=== PATIENT | female | born 1995 ===

== ENCOUNTER 2022-10-29 07:44 | Inpatient (IN) ==
[2022-10-29] MEDS ORDERED: OXYTOCIN 30 UNITS/500 ML BAG IV PRN (08:33)
[2022-10-29] MEDS ORDERED: DINOPROSTONE 10 MG INSERT PV ONE (08:33)
[2022-10-29] MEDS ORDERED: LIDOCAINE 1% LOCAL 20 ML VIAL INFIL PRN (08:33)
[2022-10-29] MEDS ORDERED: BUTORPHANOL TARTRATE 1 MG/ML VIAL IV PRN (09:05)
--- NOTE | 2022-10-29 09:05 | History & Physical Report ---
Date of Service October 29, 2022 Assessment & Plan (1) Post-term , 40-42 weeks of gestation: Plan: 26-year-old G1, P0 at 41 weeks of gestation, induction of labor for postdates, Vital signs stable afebrile, heart rate reassuring, GBS negative, Plan to admit, monitor, labs, Cervidil for cervical ripening, Discussed what to expect from induction of labor, All questions were answered. Admission and Anticipated Discharge Date Admission Date: October 29, 2022 History of Present Illness Primary Care Provider: HARR[facility] PCP Patient is a 26-year-old G1, P0 at 41 weeks of gestation who was scheduled for induction of labor for postdates. She has no complaints. She denies contractions, leakage of fluid, vaginal bleeding. She reports good movements. Her has been uncomplicated. GBS negative. Allergies Allergy/AdvReac Type Severity Reaction Status Date / Time No Known Allergies Allergy Verified 10/29/22 08:04 Home Medications Medication Instructions Recorded Confirmed Type [id number]-jgc-[id number]-FA 1 mg 1 tab PO DAILY 10/29/22 10/29/22 History tablet Patient History Medical History Family history of polycystic ovarian syndrome patient dx at age of 16 Surgical History H/O wisdom tooth extraction Social History Smoking Status: Never smoker Hx Alcohol Use: No Hx Substance Use: No Preferred Language: Sinhala Visual Impairment: No Limitations [employer] Required: No Beliefs That Will Affect Care: None marital status: marital status details: Salvador Charles Current Living Situation: Spouse current occupational status: employed 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 [employer] Other Information That Helps Us Care for You: No Feels Safe at Home: Yes Safety Concerns: Feels Safe At This Time Assistive Devices: None 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 No history of STDs, no history of chlamydia, gonorrhea, herpes Review of Systems as per Subjective / HPI Physical Exam Constitutional: WD/WN, vitals as above well developed, well nourished and comfortable Gastrointestinal (Abdomen): normal bowel sounds, soft, nontender, no hepatosplenomegaly (Gravid, Enrique 8 pounds) Genitourinary: normal external appearance OB Exam Abdomen: + vertex Manual OB Exam: + cervical dilation (0), + cervical effacement 50% and + station high OB Exam Monitor Tracing: + external uterine monitor used and + category I Bedside ultrasound, vertex, estimated weight 3773 g Results & Data Vital Signs (Past 12 Hours) Vital Signs Temp Resp 10/29/22 07:59 37.1 C 16
[2022-10-29 09:26] LABS: Hematocrit (blood only) 37.4 % (37.0-47.0); Hemoglobin 12.9 g/dl (12.0-16.0); Mean Corpuscular Hemoglobin 31.6 pg (25.0-34.0); Mean Corpuscular Hgb Conc 34.5 g/dL (32.0-36.0); Mean Corpuscular Volume 91.7 fL (80.0-100.0); Mean Platelet Volume 10.8 fL (9.4-12.4); Platelet Count 152 K/uL (130-400); RDW Coefficient of Variation 13.3 % (11.5-14.5); RDW Standard Deviation 44.9 fL (36.4-46.3); Red Blood Count 4.08 M/uL (4.20-5.40); White Blood Count 9.04 K/ul (4.8-10.8)
[2022-10-29] MEDS: LACTATED RINGER'S 1,000 ML IV PRN ×2 (15:28→19:25)
--- NOTE | 2022-10-29 15:51 | Obstetrical Progress Note ---
Date of Service October 29, 2022 Assessment & Plan Admission and Anticipated Discharge Date Admission Date: October 29, 2022 Subjective Patient is reevaluated. She has been feeling mild irregular cramping. The pain is 3 out of 10. heart rate category 1, [place] contractions every 1 to 2 minutes, tachysystole, Cervidil is removed, IV fluids started cervix is tight 1 cm, 30%, posterior, firm, -3, Continue to monitor closely Results & Data Vital Signs (Past 12 Hours) Vital Signs Temp Pulse Resp BP 10/29/22 14:58 20 10/29/22 14:58 37.1 C 20 10/29/22 14:59 78 138/79 10/29/22 11:58 37.1 C 78 16 133/80 10/29/22 07:54 102 H 134/88 10/29/22 07:59 37.1 C 16
--- NOTE | 2022-10-29 19:53 | Obstetrical Progress Note ---
Date of Service October 29, 2022 Assessment & Plan Admission and Anticipated Discharge Date Admission Date: October 29, 2022 Subjective Patient has been having painful contractions since Cervidil is removed She is asking for pain med Cervix unchanged She is very sensitive to medications, desires lowest dose possible Agrees to start with 0.5 mg Stadol Continue to monitor closely. Results & Data Vital Signs (Past 12 Hours) Vital Signs Temp Pulse Resp BP 10/29/22 19:16 36.5 C 81 18 138/79 10/29/22 14:58 20 10/29/22 14:58 37.1 C 20 10/29/22 14:59 78 138/79 10/29/22 11:58 37.1 C 78 16 133/80 10/29/22 07:54 102 H 134/88 10/29/22 07:59 37.1 C 16
[2022-10-29] MEDS: BUTORPHANOL TARTRATE 1 MG/ML VIAL IV PRN ×2 (19:56→20:19)
[2022-10-29] MEDS ORDERED: BUTORPHANOL TARTRATE 1 MG/ML VIAL IV ONE (20:14)
[2022-10-30] MEDS ORDERED: OXYTOCIN 30 UNITS/500 ML BAG IV PRN (00:17)
--- NOTE | 2022-10-30 00:17 | Obstetrical Progress Note ---
Date of Service October 30, 2022 Assessment & Plan Admission and Anticipated Discharge Date Admission Date: October 29, 2022 Subjective Patient started to be more painful again after she used Stadol VSS Afebrile FHR categ I Ctxs q 2-4 min VE; 2/ 70%/ -2, tight bulging bag Discussed IV stadol vs Epidural and she decided for epidural Continue to monitor closely Augment with low dose Oxytocin as needed Results & Data Vital Signs (Past 12 Hours) Vital Signs Temp Pulse Resp BP 10/29/22 22:51 37.1 C 88 18 125/71 10/29/22 19:16 36.5 C 81 18 138/79 10/29/22 14:58 20 10/29/22 14:58 37.1 C 20 10/29/22 14:59 78 138/79
[2022-10-30] MEDS ORDERED: fentaNYL citrate PF 100 MCG/2 ML VIAL ONE ×2 (00:18→18:21)
[2022-10-30] MEDS ORDERED: SODIUM CHLORIDE 0.9% PF INJ 10 ML VIAL ONE (00:18)
[2022-10-30] MEDS ORDERED: ePHEDrine sulfate 50 MG/ML AMP ONE (00:18)
[2022-10-30] MEDS ORDERED: BUPIVACAINE 0.25% PF 30 ML VIAL ONE (00:19)
[2022-10-30] MEDS ORDERED: fentaNYL 2MCG/ML ROPIVACAINE 1.25MG/ML 100 ML BAG EPI ONE (00:19)
[2022-10-30] MEDS ORDERED: LIDOCAINE 2%/EPINEPHRINE 1:200,000 20 ML PF ONE ×2 (00:19→18:20)
[2022-10-30] MEDS ORDERED: diphenhydrAMINE 50 MG/ML VIAL IV PRN ×2 (00:20→19:47)
[2022-10-30] MEDS ORDERED: NALOXONE HCL 1 MG in SODIUM CHLORIDE 0.9% 1000ML 1,000 ML IV PRN ×2 (00:20→19:47)
[2022-10-30] MEDS ORDERED: NALOXONE HCL 0.4 MG/1 ML VIAL/CARP IV PRN ×2 (00:20→19:47)
[2022-10-30] MEDS ORDERED: PROMETHAZINE HCL 6.25 MG in SODIUM CHLORIDE 0.9% 50 ML IV PRN (00:20)
[2022-10-30] MEDS ORDERED: NALBUPHINE HCL INJ 10 MG/ML AMP IV PRN ×2 (00:20→19:47)
[2022-10-30] MEDS ORDERED: ePHEDrine sulfate 50 MG/ML AMP IV PRN ×2 (00:20→19:47)
[2022-10-30] MEDS ORDERED: ONDANSETRON INJ 2 MG/ML 2 ML VIAL IV PRN ×3 (00:20→19:47)
--- NOTE | 2022-10-30 00:23 | Anesthesiology Consultation ---
Date of Service October 30, 2022 Assessment & Plan Chart Review Chart Review: Patient NOT seen in Pre Admission Testing and Acceptable Risk for Labor Epidural Consults Requested none ASA ASA2 Proposed Anesthesia Anesthesia Type: Labor Epidural Risk / Benefits Reviewed With: PT / POA / Parent / Guardian, Accepts Plan and Informed Consent Obtained History Height/Weight Height: 5 ft 4 in Weight: 84.368 kg Allergies Allergy/AdvReac Type Severity Reaction Status Date / Time No Known Allergies Allergy Verified 10/29/22 08:04 Medications Home Medications Medication Instructions Recorded Confirmed Last Taken [id number]-viz-Wk-FA 1 mg 1 tab PO DAILY 10/29/22 10/29/22 10/28/22 tablet Active Medications Generic Name Dose Route Start Last Admin Trade Name Freq PRN Reason Stop Dose Admin Butorphanol Tartrate 0.5 mg 10/29/22 19:51 10/29/22 20:19 Butorphanol Tartrate 1 Mg/Ml Vial IV 11/28/22 09:04 0.5 mg Q2HWA PRN Administration Pain Lactated Ringer's 1,000 mls @ 150 mls/hr 10/29/22 08:33 10/30/22 00:15 Lr IV 10/31/22 08:32 999 mls/hr .[id number] PRN Infusion L&D Protocol Protocol Past Medical History Medical History Family history of polycystic ovarian syndrome patient dx at age of 16 Exercise / Class Metabolic Activity II 4-5 Yardwork/Stairs/Walk up hill Past Surgical History Surgical History H/O wisdom tooth extraction Past Anesthesia History No Hx of Anesthesia Complications and No Family Hx of Anesthesia Complications History of PONV No Hx of PONV and No Hx of Motion Sickness Social History Smoking Status: Never smoker Hx Alcohol Use: No Hx Substance Use: No Physical Exam Vital Signs Last Vital Signs Temp 37.1 C 10/29/22 22:51 Pulse 72 10/30/22 00:15 Resp 18 10/29/22 22:51 BP 133/81 10/30/22 00:15 ENMT Mouth: no dentition abnormality Thyromental Distance: > or= 3.5 Finger Breadths Mallampati Class: II Neck normal visual inspection Respiratory normal respiratory effort Auscultation: lungs clear to auscultation bilaterally Cardiovascular Rate/Rhythm: regular rate and regular rhythm Psychiatric Orientation: alert Testing Laboratory Results 10/29/22 08:58
[2022-10-30] MEDS: fentaNYL 2MCG/ML ROPIVACAINE 1.25MG/ML 100 ML BAG EPI PRN ×3 (00:40→13:04)
[2022-10-30] MEDS: LACTATED RINGER'S 1,000 ML IV PRN ×4 (00:43→16:26)
--- NOTE | 2022-10-30 06:51 | Obstetrical Progress Note ---
Date of Service October 30, 2022 Assessment & Plan Admission and Anticipated Discharge Date Admission Date: October 29, 2022 Subjective Patient is reevaluated. SROM at 03:30 am Comfortable with epidural FHR categ I [place] ctxs q 2-3 min, Oxytocin is at 11 miu/min VE: 3/ 90%/-1, head is much lower Continue to monitor closely Results & Data Vital Signs (Past 12 Hours) Vital Signs Temp Pulse Resp BP Pulse Ox 10/30/22 06:48 76 121/57 L 10/30/22 06:43 83 98 10/30/22 06:38 76 97 10/30/22 06:33 76 98 10/30/22 06:31 77 117/59 L 10/30/22 06:28 74 97 10/30/22 06:23 84 97 10/30/22 06:18 75 114/57 L 98 10/30/22 06:13 91 H 99 10/30/22 06:00 18 10/30/22 06:00 36.9 C 18 10/30/22 06:08 74 97 10/30/22 06:03 84 99 10/30/22 06:01 78 120/72 10/30/22 05:58 82 98 10/30/22 05:53 80 97 10/30/22 05:48 82 97 10/30/22 05:47 75 121/69 10/30/22 05:43 81 97 10/30/22 05:38 81 98 10/30/22 05:33 81 97 10/30/22 05:31 77 121/62 10/30/22 05:28 80 96 10/30/22 05:23 82 98 10/30/22 05:18 84 96 10/30/22 05:17 88 114/63 10/30/22 05:13 89 95 10/30/22 05:08 85 96 10/30/22 05:03 90 96 10/30/22 05:02 86 112/58 L 10/30/22 04:58 90 96 10/30/22 04:53 82 97 10/30/22 04:48 82 96 10/30/22 04:46 77 120/60 10/30/22 04:43 82 96 10/30/22 04:38 80 98 10/30/22 04:33 97 10/30/22 04:33 80 10/30/22 04:33 78 113/64 10/30/22 04:28 81 97 10/30/22 04:23 77 98 10/30/22 04:18 84 99 10/30/22 04:17 75 117/55 L 10/30/22 04:13 79 96 10/30/22 04:08 78 96 10/30/22 03:59 36.8 C 10/30/22 04:03 80 97 10/30/22 04:02 76 117/58 L 10/30/22 03:58 83 97 10/30/22 03:53 87 97 10/30/22 03:48 81 96 10/30/22 03:46 81 107/53 L 10/30/22 03:43 83 97 10/30/22 03:30 18 10/30/22 03:30 18 10/30/22 03:38 91 H 96 10/30/22 03:33 97 10/30/22 03:33 84 10/30/22 03:33 83 102/50 L 10/30/22 03:28 82 96 10/30/22 03:00 18 10/30/22 03:00 18 10/30/22 03:23 82 96 10/30/22 03:18 82 96 10/30/22 03:17 77 100/51 L 10/30/22 03:13 79 97 10/30/22 03:06 18 10/30/22 03:06 36.9 C 18 10/30/22 03:08 79 96 10/30/22 03:03 101 H 96 10/30/22 03:02 86 108/57 L 10/30/22 02:58 89 97 10/30/22 02:53 92 H 97 10/30/22 02:48 88 97 10/30/22 02:46 97 H 109/57 L 10/30/22 02:43 98 H 97 10/30/22 02:38 91 H 97 10/30/22 02:33 81 98 10/30/22 02:31 90 109/63 10/30/22 02:28 81 97 10/30/22 02:23 79 99 10/30/22 02:18 80 99 10/30/22 02:16 85 108/64 10/30/22 02:13 83 99 10/30/22 02:08 88 99 10/30/22 02:03 87 100 10/30/22 02:01 85 112/64 10/30/22 01:58 99 H 100 10/30/22 01:53 95 H 100 10/30/22 01:48 92 H 100 10/30/22 01:47 83 109/62 10/30/22 01:43 93 H 100 10/30/22 01:38 92 H 100 10/30/22 01:33 85 99 10/30/22 01:32 81 106/60 10/30/22 01:28 100 H 100 10/30/22 01:23 89 100 10/30/22 01:18 92 H 100 10/30/22 01:17 93 H 112/68 10/30/22 01:13 94 H 99 10/30/22 01:08 90 100 10/30/22 01:03 98 H 98 10/30/22 01:01 86 123/72 10/30/22 00:58 85 98 10/30/22 00:57 90 132/75 10/30/22 00:53 87 98 10/30/22 00:52 92 H 120/72 10/30/22 00:50 84 122/70 10/30/22 00:48 89 128/73 99 10/30/22 00:46 81 126/76 10/30/22 00:43 84 99 10/30/22 00:44 84 133/79 10/30/22 00:42 88 129/78 10/30/22 00:40 81 135/76 10/30/22 00:38 100 10/30/22 00:38 93 H 10/30/22 00:38 75 148/82 H 10/30/22 00:35 72 147/86 H 10/30/22 00:33 81 100 10/30/22 00:28 100 H 100 10/30/22 00:23 80 99 10/30/22 00:15 72 133/81 10/29/22 22:51 37.1 C 88 18 125/71 10/29/22 19:16 36.5 C 81 18 138/79
[2022-10-30] MEDS ORDERED: ceFAZolin 2000MG 2,000 MG/15 ML SYR IV SCH ×2 (14:15→18:30)
[2022-10-30] MEDS ORDERED: MINERAL OIL 30 ML UDC ONE (14:57)
[2022-10-30] MEDS: CLINDAMYCIN/D5W 900 MG/50 ML BAG IV SCH ×2 (15:26→23:18)
--- NOTE | 2022-10-30 16:20 | Obstetrical Progress Note ---
Date of Service October 30, 2022 Assessment & Plan Admission and Anticipated Discharge Date Admission Date: October 29, 2022 Subjective Patient had temp of 38.4 earlier, started on IV Cefazolin and Clindamycin Temp came down to 37.8 Labored down for about 2 hours and then has been pushing for the last 2 hours. FHR had been categ I, started to be tachycardic now Head is at +3 station, caput succanadeum Bolus is going Empty her bladder and continue pushing Results & Data Vital Signs (Past 12 Hours) Vital Signs Temp Pulse Resp BP Pulse Ox 10/30/22 07:05 37.3 C 20 10/30/22 16:14 92 H 99 10/30/22 16:09 72 97 10/30/22 16:00 22 10/30/22 16:00 37.8 C H 22 10/30/22 16:04 113 H 98 10/30/22 16:01 90 121/63 10/30/22 15:59 88 96 10/30/22 15:58 108 H 93 10/30/22 15:54 87 98 10/30/22 15:49 92 H 97 10/30/22 15:48 93 H 119/61 10/30/22 15:30 20 10/30/22 15:30 20 10/30/22 15:44 92 H 97 10/30/22 15:39 107 H 99 10/30/22 15:34 124 H 99 10/30/22 15:31 93 H 121/70 10/30/22 15:29 93 H 98 10/30/22 15:24 88 98 10/30/22 15:19 85 100 10/30/22 15:14 106 H 96 10/30/22 15:09 110 H 99 10/30/22 15:04 89 98 10/30/22 15:00 20 10/30/22 15:00 20 10/30/22 14:59 85 98 10/30/22 14:54 118 H 100 10/30/22 14:53 37.1 C 10/30/22 14:49 114 H 99 10/30/22 14:47 100 H 151/85 H 10/30/22 14:44 103 H 99 10/30/22 14:30 18 10/30/22 14:30 18 10/30/22 14:39 86 98 10/30/22 14:34 97 H 98 10/30/22 14:32 92 H 124/61 10/30/22 14:29 119 H 98 10/30/22 14:24 101 H 99 10/30/22 14:19 118 H 99 10/30/22 14:17 86 130/64 10/30/22 14:14 99 H 100 10/30/22 14:09 82 100 10/30/22 14:03 88 100 10/30/22 14:02 115 H 128/89 10/30/22 13:55 38.3 C H 10/30/22 13:58 80 99 10/30/22 13:53 85 99 10/30/22 13:48 79 99 10/30/22 13:46 78 120/77 10/30/22 13:43 72 99 10/30/22 13:30 20 10/30/22 13:30 20 10/30/22 13:38 72 99 10/30/22 13:33 74 100 10/30/22 13:32 76 128/80 10/30/22 13:28 75 99 10/30/22 13:23 74 98 10/30/22 13:00 20 10/30/22 13:00 37.6 C H 20 10/30/22 13:18 72 98 10/30/22 13:17 88 127/83 10/30/22 13:13 78 100 10/30/22 13:08 72 100 10/30/22 13:03 73 100 10/30/22 13:01 68 127/76 10/30/22 12:58 71 99 10/30/22 12:53 71 100 10/30/22 12:30 20 10/30/22 12:30 20 10/30/22 12:48 73 100 10/30/22 12:46 75 126/77 10/30/22 12:43 88 100 10/30/22 12:38 74 100 10/30/22 12:33 76 100 10/30/22 12:31 74 121/68 10/30/22 12:28 74 99 10/30/22 12:23 72 100 10/30/22 12:18 75 99 10/30/22 12:17 73 119/68 10/30/22 12:13 74 100 10/30/22 12:08 73 99 10/30/22 12:00 18 10/30/22 12:00 37.6 C H 18 10/30/22 12:03 76 99 10/30/22 12:01 82 129/65 10/30/22 11:58 96 H 99 10/30/22 11:53 81 97 10/30/22 11:48 78 97 10/30/22 11:47 81 133/74 10/30/22 11:43 76 98 10/30/22 11:38 78 97 10/30/22 11:33 74 99 10/30/22 11:30 20 10/30/22 11:30 20 10/30/22 11:32 72 134/82 10/30/22 11:28 92 H 98 10/30/22 11:23 74 97 10/30/22 11:18 77 99 10/30/22 11:17 72 135/79 10/30/22 11:13 85 99 10/30/22 11:08 78 97 10/30/22 11:03 76 99 10/30/22 11:00 20 10/30/22 11:00 37.8 C H 20 10/30/22 11:01 77 130/79 10/30/22 10:30 18 10/30/22 10:30 18 10/30/22 10:58 75 98 10/30/22 10:53 76 98 10/30/22 10:48 75 98 10/30/22 10:47 75 132/85 10/30/22 10:43 96 H 100 10/30/22 10:38 80 98 10/30/22 10:33 78 99 10/30/22 10:31 74 116/60 10/30/22 10:28 76 98 10/30/22 10:23 82 98 10/30/22 10:18 78 98 10/30/22 10:16 77 115/60 10/30/22 10:13 79 97 10/30/22 10:08 79 98 10/30/22 10:00 20 10/30/22 10:00 20 10/30/22 09:30 20 10/30/22 09:30 20 10/30/22 10:03 80 99 10/30/22 10:02 78 114/64 10/30/22 09:58 83 100 10/30/22 09:53 84 99 10/30/22 09:48 78 100 10/30/22 09:46 83 127/68 10/30/22 09:43 88 99 10/30/22 09:38 83 99 10/30/22 09:33 100 10/30/22 09:33 84 10/30/22 09:33 79 121/78 10/30/22 09:28 83 99 10/30/22 09:23 81 99 10/30/22 09:18 88 99 10/30/22 09:16 82 129/77 10/30/22 09:00 20 10/30/22 09:00 37.6 C H 20 10/30/22 09:13 79 99 10/30/22 09:08 84 98 10/30/22 09:03 93 H 99 10/30/22 09:02 77 121/65 10/30/22 08:58 81 96 10/30/22 08:56 86 94 10/30/22 08:53 81 97 10/30/22 08:48 77 98 10/30/22 08:46 77 118/71 10/30/22 08:43 87 99 10/30/22 08:38 80 98 10/30/22 08:30 20 10/30/22 08:30 20 10/30/22 08:33 82 98 10/30/22 08:31 81 115/64 10/30/22 08:28 76 96 10/30/22 08:23 81 98 10/30/22 08:18 78 98 10/30/22 08:17 75 120/68 10/30/22 08:13 79 97 10/30/22 08:08 77 98 10/30/22 08:03 79 97 10/30/22 08:00 20 10/30/22 08:00 20 10/30/22 08:01 75 116/68 10/30/22 07:30 20 10/30/22 07:30 20 10/30/22 07:58 81 97 10/30/22 07:53 82 97 10/30/22 07:48 81 98 10/30/22 07:47 72 129/65 10/30/22 07:43 81 98 10/30/22 07:38 74 98 10/30/22 07:33 73 97 10/30/22 07:32 73 116/60 10/30/22 07:28 74 96 10/30/22 07:23 77 96 10/30/22 07:18 77 98 10/30/22 07:17 76 112/58 L 10/30/22 07:13 74 97 10/30/22 07:08 75 97 10/30/22 07:03 85 96 10/30/22 07:02 85 122/62 10/30/22 06:58 76 97 10/30/22 06:53 76 96 10/30/22 06:48 96 10/30/22 06:48 76 10/30/22 06:48 76 121/57 L 10/30/22 06:43 83 98 10/30/22 06:38 76 97 10/30/22 06:33 76 98 10/30/22 06:31 77 117/59 L 10/30/22 06:28 74 97 10/30/22 06:23 84 97 10/30/22 06:18 75 114/57 L 98 10/30/22 06:13 91 H 99 10/30/22 06:00 18 10/30/22 06:00 36.9 C 18 10/30/22 06:08 74 97 10/30/22 06:03 84 99 10/30/22 06:01 78 120/72 10/30/22 05:58 82 98 10/30/22 05:53 80 97 10/30/22 05:48 82 97 10/30/22 05:47 75 121/69 10/30/22 05:43 81 97 10/30/22 05:38 81 98 10/30/22 05:33 81 97 10/30/22 05:31 77 121/62 10/30/22 05:28 80 96 10/30/22 05:23 82 98 10/30/22 05:18 84 96 10/30/22 05:17 88 114/63 10/30/22 05:13 89 95 10/30/22 05:08 85 96 10/30/22 05:03 90 96 10/30/22 05:02 86 112/58 L 10/30/22 04:58 90 96 10/30/22 04:53 82 97 10/30/22 04:48 82 96 10/30/22 04:46 77 120/60 10/30/22 04:43 82 96 10/30/22 04:38 80 98 04/13/23 04:33 97 10/30/22 04:33 80 10/30/22 04:33 78 113/64 10/30/22 04:28 81 97 10/30/22 04:23 77 98 10/30/22 04:18 84 99
--- NOTE | 2022-10-30 17:30 | Obstetrical Progress Note ---
Date of Service October 30, 2022 Assessment & Plan Admission and Anticipated Discharge Date Admission Date: October 29, 2022 Subjective Patient is getting tired. She has been pushing for the last 3 hours FHR tachycardia with episode of moderate variability, no decels Bed side US: direct OP, facing up to US probe, FHR confirmed Head at +3 station, caput succedaneum is partially visible with pushing Discussed Csection with the risks vs continue pushing , decided to continue with pushing Results & Data Vital Signs (Past 12 Hours) Vital Signs Temp Pulse Resp BP Pulse Ox 10/30/22 07:05 37.3 C 20 10/30/22 17:24 77 L 10/30/22 17:24 110 H 10/30/22 17:24 102 H 88 L 10/30/22 17:19 76 L 10/30/22 17:19 84 10/30/22 17:19 69 138/63 10/30/22 17:17 93 H 141/108 H 87 L 10/30/22 17:14 90 95 10/30/22 17:12 102 H 83 L 10/30/22 17:09 97 H 97 10/30/22 17:04 107 H 96 10/30/22 17:02 103 H 116/72 10/30/22 17:00 20 10/30/22 17:00 38.0 C H 20 10/30/22 16:59 96 H 96 10/30/22 16:54 100 H 96 10/30/22 16:30 20 10/30/22 16:30 20 10/30/22 16:49 76 97 10/30/22 16:47 75 131/60 10/30/22 16:44 77 97 10/30/22 16:39 77 98 10/30/22 16:34 116 H 99 10/30/22 16:31 78 123/69 10/30/22 16:29 90 98 10/30/22 16:24 85 97 10/30/22 16:19 106 H 99 10/30/22 16:17 71 136/73 10/30/22 16:14 92 H 99 10/30/22 16:09 72 97 10/30/22 16:00 22 10/30/22 16:00 37.8 C H 22 10/30/22 16:04 113 H 98 10/30/22 16:01 90 121/63 04/13/23 15:59 88 96 10/30/22 15:58 108 H 93 10/30/22 15:54 87 98 10/30/22 15:49 92 H 97 10/30/22 15:48 93 H 119/61 10/30/22 15:30 20 10/30/22 15:30 20 10/30/22 15:44 92 H 97 10/30/22 15:39 107 H 99 10/30/22 15:34 124 H 99 10/30/22 15:31 93 H 121/70 10/30/22 15:29 93 H 98 10/30/22 15:24 88 98 10/30/22 15:19 85 100 10/30/22 15:14 106 H 96 10/30/22 15:09 110 H 99 10/30/22 15:04 89 98 10/30/22 15:00 20 10/30/22 15:00 20 10/30/22 14:59 85 98 10/30/22 14:54 118 H 100 10/30/22 14:53 37.1 C 10/30/22 14:49 114 H 99 10/30/22 14:47 100 H 151/85 H 10/30/22 14:44 103 H 99 10/30/22 14:30 18 10/30/22 14:30 18 10/30/22 14:39 86 98 10/30/22 14:34 97 H 98 10/30/22 14:32 92 H 124/61 10/30/22 14:29 119 H 98 10/30/22 14:24 101 H 99 10/30/22 14:19 118 H 99 10/30/22 14:17 86 130/64 10/30/22 14:14 99 H 100 10/30/22 14:09 82 100 10/30/22 14:03 88 100 10/30/22 14:02 115 H 128/89 10/30/22 13:55 38.3 C H 10/30/22 13:58 80 99 10/30/22 13:53 85 99 10/30/22 13:48 79 99 10/30/22 13:46 78 120/77 10/30/22 13:43 72 99 10/30/22 13:30 20 10/30/22 13:30 20 10/30/22 13:38 72 99 10/30/22 13:33 74 100 10/30/22 13:32 76 128/80 10/30/22 13:28 75 99 10/30/22 13:23 74 98 10/30/22 13:00 20 10/30/22 13:00 37.6 C H 20 10/30/22 13:18 72 98 10/30/22 13:17 88 127/83 10/30/22 13:13 78 100 10/30/22 13:08 72 100 10/30/22 13:03 73 100 10/30/22 13:01 68 127/76 10/30/22 12:58 71 99 10/30/22 12:53 71 100 10/30/22 12:30 20 10/30/22 12:30 20 10/30/22 12:48 73 100 10/30/22 12:46 75 126/77 10/30/22 12:43 88 100 10/30/22 12:38 74 100 10/30/22 12:33 76 100 10/30/22 12:31 74 121/68 10/30/22 12:28 74 99 10/30/22 12:23 72 100 10/30/22 12:18 75 99 10/30/22 12:17 73 119/68 10/30/22 12:13 74 100 10/30/22 12:08 73 99 10/30/22 12:00 18 10/30/22 12:00 37.6 C H 18 10/30/22 12:03 76 99 10/30/22 12:01 82 129/65 10/30/22 11:58 96 H 99 10/30/22 11:53 81 97 10/30/22 11:48 78 97 10/30/22 11:47 81 133/74 10/30/22 11:43 76 98 10/30/22 11:38 78 97 10/30/22 11:33 74 99 10/30/22 11:30 20 10/30/22 11:30 20 10/30/22 11:32 72 134/82 10/30/22 11:28 92 H 98 10/30/22 11:23 74 97 10/30/22 11:18 77 99 10/30/22 11:17 72 135/79 10/30/22 11:13 85 99 10/30/22 11:08 78 97 10/30/22 11:03 76 99 10/30/22 11:00 20 10/30/22 11:00 37.8 C H 20 10/30/22 11:01 77 130/79 10/30/22 10:30 18 10/30/22 10:30 18 10/30/22 10:58 75 98 10/30/22 10:53 76 98 10/30/22 10:48 75 98 10/30/22 10:47 75 132/85 10/30/22 10:43 96 H 100 10/30/22 10:38 80 98 10/30/22 10:33 78 99 10/30/22 10:31 74 116/60 10/30/22 10:28 76 98 10/30/22 10:23 82 98 10/30/22 10:18 78 98 10/30/22 10:16 77 115/60 10/30/22 10:13 79 97 10/30/22 10:08 79 98 10/30/22 10:00 20 10/30/22 10:00 20 10/30/22 09:30 20 10/30/22 09:30 20 10/30/22 10:03 80 99 10/30/22 10:02 78 114/64 10/30/22 09:58 83 100 10/30/22 09:53 84 99 10/30/22 09:48 78 100 10/30/22 09:46 83 127/68 10/30/22 09:43 88 99 10/30/22 09:38 83 99 10/30/22 09:33 100 10/30/22 09:33 84 10/30/22 09:33 79 121/78 10/30/22 09:28 83 99 10/30/22 09:23 81 99 10/30/22 09:18 88 99 10/30/22 09:16 82 129/77 10/30/22 09:00 20 10/30/22 09:00 37.6 C H 20 10/30/22 09:13 79 99 10/30/22 09:08 84 98 10/30/22 09:03 93 H 99 10/30/22 09:02 77 121/65 10/30/22 08:58 81 96 10/30/22 08:56 86 94 10/30/22 08:53 81 97 10/30/22 08:48 77 98 10/30/22 08:46 77 118/71 10/30/22 08:43 87 99 10/30/22 08:38 80 98 10/30/22 08:30 20 10/30/22 08:30 20 10/30/22 08:33 82 98 10/30/22 08:31 81 115/64 10/30/22 08:28 76 96 10/30/22 08:23 81 98 10/30/22 08:18 78 98 10/30/22 08:17 75 120/68 10/30/22 08:13 79 97 10/30/22 08:08 77 98 10/30/22 08:03 79 97 10/30/22 08:00 20 10/30/22 08:00 20 10/30/22 08:01 75 116/68 10/30/22 07:30 20 10/30/22 07:30 20 10/30/22 07:58 81 97 10/30/22 07:53 82 97 10/30/22 07:48 81 98 10/30/22 07:47 72 129/65 10/30/22 07:43 81 98 10/30/22 07:38 74 98 10/30/22 07:33 73 97 10/30/22 07:32 73 116/60 10/30/22 07:28 74 96 10/30/22 07:23 77 96 10/30/22 07:18 77 98 10/30/22 07:17 76 112/58 L 10/30/22 07:13 74 97 10/30/22 07:08 75 97 10/30/22 07:03 85 96 10/30/22 07:02 85 122/62 10/30/22 06:58 76 97 10/30/22 06:53 76 96 10/30/22 06:48 96 10/30/22 06:48 76 10/30/22 06:48 76 121/57 L 10/30/22 06:43 83 98 10/30/22 06:38 76 97 10/30/22 06:33 76 98 10/30/22 06:31 77 117/59 L 10/30/22 06:28 74 97 10/30/22 06:23 84 97 10/30/22 06:18 75 114/57 L 98 10/30/22 06:13 91 H 99 10/30/22 06:00 18 10/30/22 06:00 36.9 C 18 10/30/22 06:08 74 97 10/30/22 06:03 84 99 10/30/22 06:01 78 120/72 10/30/22 05:58 82 98 10/30/22 05:53 80 97 10/30/22 05:48 82 97 10/30/22 05:47 75 121/69 10/30/22 05:43 81 97 10/30/22 05:38 81 98 10/30/22 05:33 81 97 10/30/22 05:31 77 121/62
[2022-10-30] MEDS ORDERED: GENTAMICIN CONSULT ACTIVE PRN (18:12)
[2022-10-30] MEDS ORDERED: LACTATED RINGER'S 1,000 ML IV SCH ×3 (18:15→19:45)
--- NOTE | 2022-10-30 18:16 | Obstetrical Progress Note ---
Date of Service October 30, 2022 Assessment & Plan Admission and Anticipated Discharge Date Admission Date: October 29, 2022 Subjective Patient pushed another hour with good efforts. Caput is still visible but bony part of the head is behind with no progress. Patient is exhausted and heart rate category 2 with tachycardia at 170s, Recommended primary for delivery of infant. Patient understands C section is a major surgery, with risks including but not limited to bleeding , infection, injury to surrounding organs like bowels, bladder, ureters, adhesions, scarring, wound infection, blood cloths in legs/ lungs, longer recovery. All questions were answered. She signed an informed consent. Results & Data Vital Signs (Past 12 Hours) Vital Signs Temp Pulse Resp BP Pulse Ox 10/30/22 07:05 37.3 C 20 10/30/22 18:09 99 H 100 10/30/22 18:04 81 98 10/30/22 18:02 84 116/56 L 10/30/22 18:01 90 87 L 10/30/22 17:59 85 96 10/30/22 17:54 97 10/30/22 17:54 85 10/30/22 17:54 103 H 91 10/30/22 17:49 77 92 10/30/22 17:46 86 129/69 10/30/22 17:30 20 10/30/22 17:30 20 10/30/22 17:44 69 97 10/30/22 17:39 73 97 10/30/22 17:38 77 87 L 10/30/22 17:34 84 95 10/30/22 17:32 106 H 92 10/30/22 17:29 86 96 10/30/22 17:24 77 L 10/30/22 17:24 110 H 10/30/22 17:24 102 H 88 L 10/30/22 17:19 76 L 10/30/22 17:19 84 10/30/22 17:19 69 138/63 10/30/22 17:17 93 H 141/108 H 87 L 10/30/22 17:14 90 95 10/30/22 17:12 102 H 83 L 10/30/22 17:09 97 H 97 10/30/22 17:04 107 H 96 10/30/22 17:02 103 H 116/72 10/30/22 17:00 20 10/30/22 17:00 38.0 C H 20 10/30/22 16:59 96 H 96 10/30/22 16:54 100 H 96 10/30/22 16:30 20 10/30/22 16:30 20 10/30/22 16:49 76 97 10/30/22 16:47 75 131/60 10/30/22 16:44 77 97 10/30/22 16:39 77 98 10/30/22 16:34 116 H 99 10/30/22 16:31 78 123/69 10/30/22 16:29 90 98 10/30/22 16:24 85 97 10/30/22 16:19 106 H 99 10/30/22 16:17 71 136/73 10/30/22 16:14 92 H 99 10/30/22 16:09 72 97 10/30/22 16:00 22 10/30/22 16:00 37.8 C H 22 10/30/22 16:04 113 H 98 10/30/22 16:01 90 121/63 10/30/22 15:59 88 96 10/30/22 15:58 108 H 93 10/30/22 15:54 87 98 10/30/22 15:49 92 H 97 10/30/22 15:48 93 H 119/61 10/30/22 15:30 20 10/30/22 15:30 20 10/30/22 15:44 92 H 97 10/30/22 15:39 107 H 99 10/30/22 15:34 124 H 99 10/30/22 15:31 93 H 121/70 10/30/22 15:29 93 H 98 10/30/22 15:24 88 98 10/30/22 15:19 85 100 10/30/22 15:14 106 H 96 10/30/22 15:09 110 H 99 10/30/22 15:04 89 98 10/30/22 15:00 20 10/30/22 15:00 20 10/30/22 14:59 85 98 10/30/22 14:54 118 H 100 10/30/22 14:53 37.1 C 10/30/22 14:49 114 H 99 10/30/22 14:47 100 H 151/85 H 10/30/22 14:44 103 H 99 10/30/22 14:30 18 10/30/22 14:30 18 10/30/22 14:39 86 98 10/30/22 14:34 97 H 98 10/30/22 14:32 92 H 124/61 10/30/22 14:29 119 H 98 10/30/22 14:24 101 H 99 10/30/22 14:19 118 H 99 10/30/22 14:17 86 130/64 10/30/22 14:14 99 H 100 10/30/22 14:09 82 100 10/30/22 14:03 88 100 10/30/22 14:02 115 H 128/89 10/30/22 13:55 38.3 C H 10/30/22 13:58 80 99 10/30/22 13:53 85 99 10/30/22 13:48 79 99 10/30/22 13:46 78 120/77 10/30/22 13:43 72 99 10/30/22 13:30 20 10/30/22 13:30 20 10/30/22 13:38 72 99 10/30/22 13:33 74 100 10/30/22 13:32 76 128/80 10/30/22 13:28 75 99 10/30/22 13:23 74 98 10/30/22 13:00 20 10/30/22 13:00 37.6 C H 20 10/30/22 13:18 72 98 10/30/22 13:17 88 127/83 10/30/22 13:13 78 100 10/30/22 13:08 72 100 10/30/22 13:03 73 100 10/30/22 13:01 68 127/76 10/30/22 12:58 71 99 10/30/22 12:53 71 100 10/30/22 12:30 20 10/30/22 12:30 20 10/30/22 12:48 73 100 10/30/22 12:46 75 126/77 10/30/22 12:43 88 100 10/30/22 12:38 74 100 10/30/22 12:33 76 100 10/30/22 12:31 74 121/68 10/30/22 12:28 74 99 10/30/22 12:23 72 100 10/30/22 12:18 75 99 10/30/22 12:17 73 119/68 10/30/22 12:13 74 100 10/30/22 12:08 73 99 10/30/22 12:00 18 10/30/22 12:00 37.6 C H 18 10/30/22 12:03 76 99 10/30/22 12:01 82 129/65 10/30/22 11:58 96 H 99 10/30/22 11:53 81 97 10/30/22 11:48 78 97 10/30/22 11:47 81 133/74 10/30/22 11:43 76 98 10/30/22 11:38 78 97 10/30/22 11:33 74 99 10/30/22 11:30 20 10/30/22 11:30 20 10/30/22 11:32 72 134/82 10/30/22 11:28 92 H 98 10/30/22 11:23 74 97 10/30/22 11:18 77 99 10/30/22 11:17 72 135/79 10/30/22 11:13 85 99 10/30/22 11:08 78 97 10/30/22 11:03 76 99 10/30/22 11:00 20 10/30/22 11:00 37.8 C H 20 10/30/22 11:01 77 130/79 10/30/22 10:30 18 10/30/22 10:30 18 10/30/22 10:58 75 98 10/30/22 10:53 76 98 10/30/22 10:48 75 98 10/30/22 10:47 75 132/85 10/30/22 10:43 96 H 100 10/30/22 10:38 80 98 10/30/22 10:33 78 99 10/30/22 10:31 74 116/60 10/30/22 10:28 76 98 10/30/22 10:23 82 98 10/30/22 10:18 78 98 10/30/22 10:16 77 115/60 10/30/22 10:13 79 97 10/30/22 10:08 79 98 10/30/22 10:00 20 10/30/22 10:00 20 10/30/22 09:30 20 10/30/22 09:30 20 10/30/22 10:03 80 99 10/30/22 10:02 78 114/64 10/30/22 09:58 83 100 10/30/22 09:53 84 99 10/30/22 09:48 78 100 10/30/22 09:46 83 127/68 10/30/22 09:43 88 99 10/30/22 09:38 83 99 10/30/22 09:33 100 10/30/22 09:33 84 10/30/22 09:33 79 121/78 10/30/22 09:28 83 99 10/30/22 09:23 81 99 10/30/22 09:18 88 99 10/30/22 09:16 82 129/77 10/30/22 09:00 20 10/30/22 09:00 37.6 C H 20 10/30/22 09:13 79 99 10/30/22 09:08 84 98 10/30/22 09:03 93 H 99 10/30/22 09:02 77 121/65 10/30/22 08:58 81 96 10/30/22 08:56 86 94 10/30/22 08:53 81 97 10/30/22 08:48 77 98 10/30/22 08:46 77 118/71 10/30/22 08:43 87 99 10/30/22 08:38 80 98 10/30/22 08:30 20 10/30/22 08:30 20 10/30/22 08:33 82 98 10/30/22 08:31 81 115/64 10/30/22 08:28 76 96 10/30/22 08:23 81 98 10/30/22 08:18 78 98 10/30/22 08:17 75 120/68 10/30/22 08:13 79 97 10/30/22 08:08 77 98 10/30/22 08:03 79 97 10/30/22 08:00 20 10/30/22 08:00 20 10/30/22 08:01 75 116/68 10/30/22 07:30 20 10/30/22 07:30 20 10/30/22 07:58 81 97 10/30/22 07:53 82 97 10/30/22 07:48 81 98 10/30/22 07:47 72 129/65 10/30/22 07:43 81 98 10/30/22 07:38 74 98 10/30/22 07:33 73 97 10/30/22 07:32 73 116/60 10/30/22 07:28 74 96 10/30/22 07:23 77 96 10/30/22 07:18 77 98 10/30/22 07:17 76 112/58 L 10/30/22 07:13 74 97 10/30/22 07:08 75 97 10/30/22 07:03 85 96 10/30/22 07:02 85 122/62 10/30/22 06:58 76 97 10/30/22 06:53 76 96 10/30/22 06:48 96 10/30/22 06:48 76 10/30/22 06:48 76 121/57 L 10/30/22 06:43 83 98 10/30/22 06:38 76 97 10/30/22 06:33 76 98 10/30/22 06:31 77 117/59 L 10/30/22 06:28 74 97 10/30/22 06:23 84 97 10/30/22 06:18 75 114/57 L 98
[2022-10-30] MEDS ORDERED: CITRIC ACID/SODIUM CITRATE 15 ML UDC ONE (18:23)
[2022-10-30] MEDS ORDERED: GENTAMICIN SULFATE 420 MG in DEXTROSE 5% 100 ML IV SCH (18:30)
[2022-10-30] MEDS ORDERED: OXYTOCIN 10 UNITS/ML 10ML VIAL ONE (18:59)
[2022-10-30] MEDS ORDERED: CITRIC ACID/SODIUM CITRATE 15 ML UDC PO SCH (19:00)
[2022-10-30] MEDS ORDERED: MIDAZOLAM HCL 1 MG/ML 2ML VIAL ONE (19:15)
[2022-10-30] MEDS ORDERED: MEPERIDINE HCL 25 MG/ML CARP/VIAL ONE (19:17)
[2022-10-30] MEDS ORDERED: MoRPHine SULFATE PF 1 MG/ML 10 ML AMP/VIAL ONE (19:22)
[2022-10-30] MEDS ORDERED: diphenhydrAMINE Capsule 25 MG CAP PO PRN (19:35)
[2022-10-30] MEDS ORDERED: SENNA 8.6 MG TAB PO PRN (19:35)
[2022-10-30] MEDS ORDERED: HYDROCORTISONE ACETATE 25 MG SUPP PR PRN (19:35)
[2022-10-30] MEDS ORDERED: BENZOCAINE 20% AER SPR 82.5 GM CAN EXT PRN (19:35)
[2022-10-30] MEDS ORDERED: DIPHTHERIA/TETANUS/PERTUSSIS 0.5mL SYR/VIAL (Age 7+yrs) IM ONE (19:35)
[2022-10-30] MEDS ORDERED: MAGNESIUM HYDROXIDE SUSP 30 ML UDC PO PRN (19:35)
[2022-10-30] MEDS ORDERED: MEASLES, MUMPS & RUBELLA VIRUS VIAL SQ ONE (19:35)
[2022-10-30] MEDS ORDERED: MoRPHine SULFATE PF 1 MG/ML 10 ML AMP/VIAL EPI ONE (19:47)
[2022-10-30] MEDS ORDERED: LACTATED RINGER'S 500 ML IV PRN (19:47)
[2022-10-30] MEDS ORDERED: PROMETHAZINE HCL 25 MG in SODIUM CHLORIDE 0.9% 50 ML IV PRN (19:47)
[2022-10-30] MEDS ORDERED: NALOXONE HCL 0.08 MG in SYRINGE 1.8 ML IV PRN (19:47)
--- NOTE | 2022-10-30 19:55 | Anesthesia Procedure Note ---
Date of Service October 30, 2022 Anesthesia Post Epidural Note Vital Signs Vital Signs: Temp Pulse Resp BP Pulse Ox 37.6 C H 99 H 20 96/51 L 100 10/30/22 18:00 10/30/22 19:53 10/30/22 18:30 10/30/22 19:44 10/30/22 19:53 Pain Intensity Bilateral Abdomen: Pain Intensity: 3 Notes Mental Status: alert / awake / arousable Nausea / Vomiting: adequately controlled Pain: adequately controlled Airway Patency, RR, SpO2: stable & adequate BP & HR: stable & adequate Hydration State: stable & adequate Neuraxial Anesthesia: was administered and sensory block is resolving Anesthetic Complications: no major complications apparent Epidural: Removed without complications and With tip intact
[2022-10-30] MEDS ORDERED: NO NARCOTICS OR SEDATIVES SCH (20:00)
[2022-10-30] MEDS ORDERED: SODIUM CHLORIDE 0.9% 1000ML 1,000 ML IV SCH (20:00)
[2022-10-30] MEDS ORDERED: DC INTRASPINAL MORPHINE SCH (20:00)
--- NOTE | 2022-10-30 20:31 | Anesthesiology Progress Note ---
Date of Service October 30, 2022 Anesthesia Post Procedure Vital Signs Vital Signs: Temp Pulse Resp BP Pulse Ox 10/30/22 20:24 18 10/30/22 20:14 16 10/30/22 20:04 18 10/30/22 19:54 16 10/30/22 19:44 36.7 C 16 10/30/22 07:05 37.3 C 20 10/30/22 20:28 101 H 96 10/30/22 20:24 82 110/59 L 10/30/22 20:23 86 99 10/30/22 20:18 88 100 10/30/22 20:13 93 H 100 10/30/22 20:14 88 106/56 L 10/30/22 20:08 93 H 100 10/30/22 20:03 93 H 100 10/30/22 20:04 93 H 109/58 L 10/30/22 19:58 94 H 99 10/30/22 19:54 95 H 99/54 L 10/30/22 19:53 99 H 100 10/30/22 19:49 99 H 87 L 10/30/22 19:48 104 H 100 10/30/22 19:44 110 H 96/51 L 10/30/22 19:43 117 H 99 10/30/22 18:34 123 H 97 10/30/22 18:33 114 H 119/73 10/30/22 18:30 20 10/30/22 18:30 20 10/30/22 18:31 122 H 119/79 10/30/22 18:29 119 H 97 10/30/22 18:24 113 H 98 10/30/22 18:00 20 10/30/22 18:00 37.6 C H 20 10/30/22 18:19 105 H 99 10/30/22 18:17 106 H 123/82 10/30/22 18:14 92 H 99 10/30/22 18:09 99 H 100 10/30/22 18:04 81 98 10/30/22 18:02 84 116/56 L 10/30/22 18:01 90 87 L 10/30/22 17:59 85 96 10/30/22 17:54 97 10/30/22 17:54 85 10/30/22 17:54 103 H 91 10/30/22 17:49 77 92 10/30/22 17:46 86 129/69 10/30/22 17:30 20 10/30/22 17:30 20 10/30/22 17:44 69 97 10/30/22 17:39 73 97 10/30/22 17:38 77 87 L 10/30/22 17:34 84 95 10/30/22 17:32 106 H 92 10/30/22 17:29 86 96 10/30/22 17:24 77 L 10/30/22 17:24 110 H 10/30/22 17:24 102 H 88 L 10/30/22 17:19 76 L 10/30/22 17:19 84 10/30/22 17:19 69 138/63 10/30/22 17:17 93 H 141/108 H 87 L 10/30/22 17:14 90 95 10/30/22 17:12 102 H 83 L 10/30/22 17:09 97 H 97 10/30/22 17:04 107 H 96 10/30/22 17:02 103 H 116/72 10/30/22 17:00 20 10/30/22 17:00 38.0 C H 20 10/30/22 16:59 96 H 96 10/30/22 16:54 100 H 96 10/30/22 16:30 20 10/30/22 16:30 20 10/30/22 16:49 76 97 10/30/22 16:47 75 131/60 10/30/22 16:44 77 97 10/30/22 16:39 77 98 10/30/22 16:34 116 H 99 10/30/22 16:31 78 123/69 10/30/22 16:29 90 98 10/30/22 16:24 85 97 10/30/22 16:19 106 H 99 10/30/22 16:17 71 136/73 10/30/22 16:14 92 H 99 10/30/22 16:09 72 97 10/30/22 16:00 22 10/30/22 16:00 37.8 C H 22 10/30/22 16:04 113 H 98 10/30/22 16:01 90 121/63 10/30/22 15:59 88 96 10/30/22 15:58 108 H 93 10/30/22 15:54 87 98 10/30/22 15:49 92 H 97 10/30/22 15:48 93 H 119/61 10/30/22 15:30 20 10/30/22 15:30 20 10/30/22 15:44 92 H 97 10/30/22 15:39 107 H 99 10/30/22 15:34 124 H 99 10/30/22 15:31 93 H 121/70 10/30/22 15:29 93 H 98 10/30/22 15:24 88 98 10/30/22 15:19 85 100 10/30/22 15:14 106 H 96 10/30/22 15:09 110 H 99 10/30/22 15:04 89 98 10/30/22 15:00 20 10/30/22 15:00 20 10/30/22 14:59 85 98 10/30/22 14:54 118 H 100 10/30/22 14:53 37.1 C 10/30/22 14:49 114 H 99 10/30/22 14:47 100 H 151/85 H 10/30/22 14:44 103 H 99 10/30/22 14:30 18 10/30/22 14:30 18 10/30/22 14:39 86 98 10/30/22 14:34 97 H 98 10/30/22 14:32 92 H 124/61 10/30/22 14:29 119 H 98 10/30/22 14:24 101 H 99 10/30/22 14:19 118 H 99 10/30/22 14:17 86 130/64 10/30/22 14:14 99 H 100 10/30/22 14:09 82 100 10/30/22 14:03 88 100 10/30/22 14:02 115 H 128/89 10/30/22 13:55 38.3 C H 10/30/22 13:58 80 99 10/30/22 13:53 85 99 10/30/22 13:48 79 99 10/30/22 13:46 78 120/77 10/30/22 13:43 72 99 10/30/22 13:30 20 10/30/22 13:30 20 10/30/22 13:38 72 99 10/30/22 13:33 74 100 10/30/22 13:32 76 128/80 10/30/22 13:28 75 99 10/30/22 13:23 74 98 10/30/22 13:00 20 10/30/22 13:00 37.6 C H 20 10/30/22 13:18 72 98 10/30/22 13:17 88 127/83 10/30/22 13:13 78 100 10/30/22 13:08 72 100 10/30/22 13:03 73 100 10/30/22 13:01 68 127/76 10/30/22 12:58 71 99 10/30/22 12:53 71 100 10/30/22 12:30 20 10/30/22 12:30 20 10/30/22 12:48 73 100 10/30/22 12:46 75 126/77 10/30/22 12:43 88 100 10/30/22 12:38 74 100 10/30/22 12:33 76 100 10/30/22 12:31 74 121/68 10/30/22 12:28 74 99 10/30/22 12:23 72 100 10/30/22 12:18 75 99 10/30/22 12:17 73 119/68 10/30/22 12:13 74 100 10/30/22 12:08 73 99 10/30/22 12:00 18 10/30/22 12:00 37.6 C H 18 10/30/22 12:03 76 99 10/30/22 12:01 82 129/65 10/30/22 11:58 96 H 99 10/30/22 11:53 81 97 10/30/22 11:48 78 97 10/30/22 11:47 81 133/74 10/30/22 11:43 76 98 10/30/22 11:38 78 97 10/30/22 11:33 74 99 10/30/22 11:30 20 10/30/22 11:30 20 10/30/22 11:32 72 134/82 10/30/22 11:28 92 H 98 10/30/22 11:23 74 97 10/30/22 11:18 77 99 10/30/22 11:17 72 135/79 10/30/22 11:13 85 99 10/30/22 11:08 78 97 10/30/22 11:03 76 99 10/30/22 11:00 20 10/30/22 11:00 37.8 C H 20 10/30/22 11:01 77 130/79 10/30/22 10:30 18 10/30/22 10:30 18 10/30/22 10:58 75 98 10/30/22 10:53 76 98 10/30/22 10:48 75 98 10/30/22 10:47 75 132/85 10/30/22 10:43 96 H 100 10/30/22 10:38 80 98 10/30/22 10:33 78 99 10/30/22 10:31 74 116/60 10/30/22 10:28 76 98 10/30/22 10:23 82 98 10/30/22 10:18 78 98 10/30/22 10:16 77 115/60 10/30/22 10:13 79 97 10/30/22 10:08 79 98 10/30/22 10:00 20 10/30/22 10:00 20 10/30/22 09:30 20 10/30/22 09:30 20 10/30/22 10:03 80 99 10/30/22 10:02 78 114/64 10/30/22 09:58 83 100 10/30/22 09:53 84 99 10/30/22 09:48 78 100 10/30/22 09:46 83 127/68 10/30/22 09:43 88 99 10/30/22 09:38 83 99 10/30/22 09:33 100 10/30/22 09:33 84 10/30/22 09:33 79 121/78 10/30/22 09:28 83 99 10/30/22 09:23 81 99 10/30/22 09:18 88 99 10/30/22 09:16 82 129/77 10/30/22 09:00 20 10/30/22 09:00 37.6 C H 20 10/30/22 09:13 79 99 10/30/22 09:08 84 98 10/30/22 09:03 93 H 99 10/30/22 09:02 77 121/65 10/30/22 08:58 81 96 10/30/22 08:56 86 94 10/30/22 08:53 81 97 10/30/22 08:48 77 98 10/30/22 08:46 77 118/71 10/30/22 08:43 87 99 10/30/22 08:38 80 98 10/30/22 08:30 20 10/30/22 08:30 20 10/30/22 08:33 82 98 10/30/22 08:31 81 115/64 10/30/22 08:28 76 96 10/30/22 08:23 81 98 10/30/22 08:18 78 98 10/30/22 08:17 75 120/68 10/30/22 08:13 79 97 10/30/22 08:08 77 98 10/30/22 08:03 79 97 10/30/22 08:00 20 10/30/22 08:00 20 10/30/22 08:01 75 116/68 10/30/22 07:30 20 10/30/22 07:30 20 10/30/22 07:58 81 97 10/30/22 07:53 82 97 10/30/22 07:48 81 98 10/30/22 07:47 72 129/65 10/30/22 07:43 81 98 10/30/22 07:38 74 98 10/30/22 07:33 73 97 10/30/22 07:32 73 116/60 10/30/22 07:28 74 96 10/30/22 07:23 77 96 10/30/22 07:18 77 98 10/30/22 07:17 76 112/58 L 10/30/22 07:13 74 97 10/30/22 07:08 75 97 10/30/22 07:03 85 96 10/30/22 07:02 85 122/62 10/30/22 06:58 76 97 10/30/22 06:53 76 96 10/30/22 06:48 96 10/30/22 06:48 76 10/30/22 06:48 76 121/57 L 10/30/22 06:43 83 98 10/30/22 06:38 76 97 10/30/22 06:33 76 98 10/30/22 06:31 77 117/59 L 10/30/22 06:28 74 97 10/30/22 06:23 84 97 10/30/22 06:18 75 114/57 L 98 10/30/22 06:13 91 H 99 10/30/22 06:00 18 10/30/22 06:00 36.9 C 18 10/30/22 06:08 74 97 10/30/22 06:03 84 99 10/30/22 06:01 78 120/72 10/30/22 05:58 82 98 10/30/22 05:53 80 97 10/30/22 05:48 82 97 10/30/22 05:47 75 121/69 10/30/22 05:43 81 97 10/30/22 05:38 81 98 10/30/22 05:33 81 97 10/30/22 05:31 77 121/62 10/30/22 05:28 80 96 10/30/22 05:23 82 98 10/30/22 05:18 84 96 10/30/22 05:17 88 114/63 10/30/22 05:13 89 95 10/30/22 05:08 85 96 10/30/22 05:03 90 96 10/30/22 05:02 86 112/58 L 10/30/22 04:58 90 96 10/30/22 04:53 82 97 10/30/22 04:48 82 96 10/30/22 04:46 77 120/60 10/30/22 04:43 82 96 10/30/22 04:38 80 98 10/30/22 04:33 97 10/30/22 04:33 80 10/30/22 04:33 78 113/64 10/30/22 04:28 81 97 10/30/22 04:23 77 98 10/30/22 04:18 84 99 10/30/22 04:17 75 117/55 L 10/30/22 04:13 79 96 10/30/22 04:08 78 96 10/30/22 03:59 36.8 C 10/30/22 04:03 80 97 10/30/22 04:02 76 117/58 L 10/30/22 03:58 83 97 10/30/22 03:53 87 97 10/30/22 03:48 81 96 10/30/22 03:46 81 107/53 L 10/30/22 03:43 83 97 10/30/22 03:30 18 10/30/22 03:30 18 10/30/22 03:38 91 H 96 10/30/22 03:33 97 10/30/22 03:33 84 10/30/22 03:33 83 102/50 L 04/13/23 03:28 82 96 10/30/22 03:00 18 10/30/22 03:00 18 10/30/22 03:23 82 96 10/30/22 03:18 82 96 10/30/22 03:17 77 100/51 L 10/30/22 03:13 79 97 10/30/22 03:06 18 10/30/22 03:06 36.9 C 18 10/30/22 03:08 79 96 10/30/22 03:03 101 H 96 10/30/22 03:02 86 108/57 L 10/30/22 02:58 89 97 10/30/22 02:53 92 H 97 10/30/22 02:48 88 97 10/30/22 02:46 97 H 109/57 L 10/30/22 02:43 98 H 97 10/30/22 02:38 91 H 97 10/30/22 02:33 81 98 10/30/22 02:31 90 109/63 10/30/22 02:28 81 97 10/30/22 02:23 79 99 10/30/22 02:18 80 99 10/30/22 02:16 85 108/64 10/30/22 02:13 83 99 10/30/22 02:08 88 99 10/30/22 02:03 87 100 10/30/22 02:01 85 112/64 10/30/22 01:58 99 H 100 10/30/22 01:53 95 H 100 10/30/22 01:48 92 H 100 10/30/22 01:47 83 109/62 10/30/22 01:43 93 H 100 10/30/22 01:38 92 H 100 10/30/22 01:33 85 99 10/30/22 01:32 81 106/60 10/30/22 01:28 100 H 100 10/30/22 01:23 89 100 10/30/22 01:18 92 H 100 10/30/22 01:17 93 H 112/68 10/30/22 01:13 94 H 99 10/30/22 01:08 90 100 10/30/22 01:03 98 H 98 10/30/22 01:01 86 123/72 10/30/22 00:58 85 98 10/30/22 00:57 90 132/75 04/13/23 00:53 87 98 10/30/22 00:52 92 H 120/72 10/30/22 00:50 84 122/70 10/30/22 00:48 89 128/73 99 10/30/22 00:46 81 126/76 10/30/22 00:43 84 99 10/30/22 00:44 84 133/79 10/30/22 00:42 88 129/78 10/30/22 00:40 81 135/76 10/30/22 00:38 100 10/30/22 00:38 93 H 10/30/22 00:38 75 148/82 H 10/30/22 00:35 72 147/86 H 10/30/22 00:33 81 100 10/30/22 00:28 100 H 100 10/30/22 00:23 80 99 10/30/22 00:15 72 133/81 10/29/22 22:51 37.1 C 88 18 125/71 Pain Intensity Bilateral Abdomen: Pain Intensity: 3 Transfer of Care Handoff Completed per policy Notes Mental Status: alert / awake / arousable Patient Amnestic to Procedure: Yes Nausea / Vomiting: adequately controlled Pain: adequately controlled Airway Patency, RR, SpO2: stable & adequate BP & HR: stable & adequate Hydration State: stable & adequate Neuraxial Anesthesia: was administered and sensory block is resolving Anesthetic Complications: no major complications apparent
[2022-10-30] MEDS: OXYTOCIN 20 UNITS in LACTATED RINGER'S 1,000 ML IV SCH (22:01)
[2022-10-30] MEDS: DOCUSATE SODIUM 100 MG CAP PO SCH (22:45)
[2022-10-30] MEDS: SIMETHICONE 80 MG CHEW PO SCH (23:25)
[2022-10-31] MEDS ORDERED: diphenhydrAMINE 50 MG/ML VIAL IV PRN (00:19)
[2022-10-31] MEDS: AMPICILLIN 2,000 MG in SODIUM CHLOR 0.9% AD-VAN 100 ML IV SCH ×4 (00:34→18:25)
--- NOTE | 2022-10-31 00:49 | Operative Report (OR) ---
DATE OF SURGERY: 10/30/2022. PREOPERATIVE DIAGNOSES: The patient is a 26-year-old G1, P0 at 41 weeks' and 1 day gestation, who was admitted yesterday for induction of labor at term. She progressed to full dilatation and pushed for 4 hours with no progress, arrest of descent in second stage of labor, direct occiput posterior, intrapartum fever, suspected intra-amniotic infection. POSTOPERATIVE DIAGNOSES: The patient is a 26-year-old G1, P0 at 41 weeks' and 1 day gestation, who was admitted yesterday for induction of labor at term. She progressed to full dilatation and pushed for 4 hours with no progress, arrest of descent in second stage of labor, direct occiput posterior, intrapartum fever, suspected intra-amniotic infection. PROCEDURE: Primary low transverse with Pfannenstiel skin incision. SURGEON: Gabriella Bellamy MD. TRIMMER LOADER: Dr. Nixon. ESTIMATED BLOOD LOSS: 700. URINE: 100 mL of urine. ANESTHESIA: Labor epidural. ANESTHESIOLOGIST: Dr. Ventura. COMPLICATIONS: None. FINDINGS: Baby was a viable male infant delivered in direct occiput posterior position vertex at 1900, 7 p.m. Apgars were 8/9, weight is 3638. MATERNAL FINDINGS: Normal uterus, fallopian tubes, and ovaries. DESCRIPTION OF PROCEDURE: The patient was taken to the operating room where epidural anesthesia was found to be adequate. She was placed in dorsal supine position with a leftward tilt. She was prepared and draped in the usual sterile fashion. A Pfannenstiel skin incision was made and carried through to the underlying layer of fascia with the Bovie. Fascia was incised in the midline and incision was extended laterally with the help of Galvez scissors and then the rectus muscles were dissected off sharply with Galvez scissors from the fascia and then they were in the midline. Peritoneum was entered bluntly with fingers and then the peritoneal incision was extended superiorly and inferiorly with good visualization of the bladder. Bladder blade was inserted. Vesicouterine peritoneum was entered bluntly with the fingers and then bladder blade was reinserted. Lower uterine segment was incised in a transverse fashion. Incision was extended laterally with the help of fingers. Membranes were ruptured and meconium stained fluid was obtained. Baby's neck and shoulder was at the incision site. Baby's head was engaged low in the pelvis. With labor nurse's aid, the head was pushed up from vagina towards the abdominal incision. I was able to grab the head and brought to the incision without difficulty. The head was delivered and then shoulders were delivered with minimal traction. Baby's mouth and nose were suctioned. Cord was clamped x2 and cut and he was handed off to the waiting pediatric team with Dr. Mallory. Then placenta was delivered manually as intact and complete. Uterus was exteriorized and cleared of all clots and debris. Uterine incision was repaired with 0 Vicryl in a running locked fashion. Second imbricating layer was placed with another 0 Vicryl in a running locked fashion and excellent hemostasis was achieved. Cul-de-sac was irrigated with warm normal saline and suctioned. Uterus was returned to the abdomen. Pelvis was irrigated with normal saline and suctioned. Incision was checked to be again hemostatic. Parietal peritoneum was reapproximated with 3-0 Vicryl in a running fashion. Rectus muscles were brought together with the same suture in a running fashion. Rectus fascia was reapproximated with 0 Vicryl in a running fashion. Subcuticular fat tissue was also reapproximated with 3-0 Vicryl in a running fashion. The skin was closed with shruthi. The patient tolerated the procedure well. Sponge, lap, needle count was correct x3. She was given 2 grams of cefoxitin and gentamicin before surgery. She was taken to recovery room in stable condition. No complications happened, and I and Dr. Nixon was present during whole procedure. My project construction assistant manager was needed for retraction, aid during delivery of infant and hemostasis. Job ID: [id number] [facility]
[2022-10-31] MEDS: KETOROLAC 30 MG/ML VIAL IV PRN ×2 (04:00→12:30)
[2022-10-31] MEDS: CLINDAMYCIN/D5W 900 MG/50 ML BAG IV SCH ×3 (06:03→22:02)
[2022-10-31 06:44] LABS: Hematocrit (blood only) 33.7 % (37.0-47.0); Hemoglobin 11.5 g/dl (12.0-16.0); Mean Corpuscular Hemoglobin 31.9 pg (25.0-34.0); Mean Corpuscular Hgb Conc 34.1 g/dL (32.0-36.0); Mean Corpuscular Volume 93.4 fL (80.0-100.0); Mean Platelet Volume 10.9 fL (9.4-12.4); Platelet Count 126 K/uL (130-400); RDW Coefficient of Variation 13.7 % (11.5-14.5); RDW Standard Deviation 46.5 fL (36.4-46.3); Red Blood Count 3.61 M/uL (4.20-5.40); White Blood Count 17.61 K/ul (4.8-10.8)
[2022-10-31 07:26] LABS: Basophils # (auto) 0.04 K/uL (0-0.2); Basophils % (auto) 0.2 %; Eosinophils # (auto) 0.03 K/uL (0-0.50); Eosinophils % (auto) 0.2 %; Immature Granulocytes # (auto) 0.09 K/uL (0.01-0.20); Immature Granulocytes % (auto) 0.5 %; Monocytes # (auto) 1.02 K/uL (0.11-0.59); Monocytes % (auto) 5.8 %; Neutrophils # (auto) 15.03 K/uL (1.40-6.50); Neutrophils % (auto) 85.3 %
[2022-10-31] MEDS: SIMETHICONE 80 MG CHEW PO SCH ×4 (10:08→21:08)
[2022-10-31] MEDS: FERROUS SULFATE 325 MG TAB PO SCH (10:09)
[2022-10-31] MEDS: PRENATAL VITAMIN 1 TAB PO SCH (10:09)
[2022-10-31] MEDS: DOCUSATE SODIUM 100 MG CAP PO SCH ×2 (10:09→21:08)
[2022-10-31] MEDS: OXYTOCIN 20 UNITS in LACTATED RINGER'S 1,000 ML IV SCH (10:10)
--- NOTE | 2022-10-31 11:35 | Pharmacy Report ---
Pharmacy PK ABX Note - Date of Service October 31, 2022 - Assessment and Plan Assessment 26 year old F receiving GENTAMCIN, AMPICILLIN, AND CLINDAMYCIN for treatment of endometritis s/p . Day # 1/2 of antimicrobial therapy, plan is to transition to Augmentin after 48 hours of IV antibiotics per provider Plan Gentamicin * 420mg (5mg/kg) q24h ordered for 48 hours * No level required for empiric short course therapy, consider random level if continuing beyond 48 hours * Check serum creatinine in AM Pharmacy will continue to follow and will adjust dose/frequency as necessary. Thank you.
[2022-10-31] MEDS ORDERED: PROMETHAZINE HCL 25 MG in SODIUM CHLORIDE 0.9% 50 ML IV PRN (13:47)
[2022-10-31] MEDS ORDERED: MEPERIDINE HCL 50 MG/ML CARP IV PRN (13:47)
[2022-10-31] MEDS ORDERED: oxyCODONE/ACETAMINOPHEN 5mg/325mg TAB PO PRN (13:47)
--- NOTE | 2022-10-31 14:07 | Obstetrical Progress Note ---
Date of Service October 31, 2022 Subjective Ambulation: ambulating normally Voiding: no voiding problems Passing Gas:: Yes Diet Tolerance:: regular diet Feeding Type:: breast feeding Current Pain Level(1-10): 0 doing well Physical Exam Constitutional WD/WN, vitals as above Gastrointestinal (Abdomen) Inspection/Auscultation: abdomen normal to inspection and + abdominal surgical incision Musculoskeletal Extremities: extremities normal to inspection Skin no rashes, warm and dry Neurologic patellar DTR's 2+ bilat, sensation intact Psychiatric A+Ox3, euthymic affect Results & Data Vital Signs (Past 12 Hours) Vital Signs Temp Pulse Resp BP Pulse Ox O2 Del Method 10/31/22 07:30 36.6 C 79 18 105/70 98 Room Air 10/31/22 06:00 18 94 10/31/22 05:00 18 95 10/31/22 04:00 18 98 10/31/22 03:00 18 95 10/31/22 04:00 36.5 C 78 18 123/83 Laboratory Results Laboratory Results - last 72 hr 10/29/22 10/29/22 10/30/22 08:58 Unknown 18:23 WBC 9.04 RBC 4.08 L Hgb 12.9 Hct 37.4 MCV 91.7 MCH 31.6 MCHC 34.5 RDW Std Deviation 44.9 RDW Coeff of Wilbur 13.3 Plt Count 152 MPV 10.8 Immature Gran % (Auto) Neut % (Auto) Lymph % (Auto) [place]arro % (Auto) Eos % (Auto) Baso % (Auto) Neut # (Auto) Lymph # (Auto) [place]arro # (Auto) Eos # (Auto) Baso # (Auto) Immature Gran # (Auto) SARS-CoV-2, RNA, NAAT NEGATIVE Blood Type A Positive Antibody Screen NEGATIVE 10/31/22 05:52 WBC 17.61 H RBC 3.61 L Hgb 11.5 L Hct 33.7 L MCV 93.4 MCH 31.9 MCHC 34.1 RDW Std Deviation 46.5 H RDW Coeff of Wilbur 13.7 Plt Count 126 L MPV 10.9 Immature Gran % (Auto) 0.5 Neut % (Auto) 85.3 Lymph % (Auto) 8.0 [place]arro % (Auto) 5.8 Eos % (Auto) 0.2 Baso % (Auto) 0.2 Neut # (Auto) 15.03 H Lymph # (Auto) 1.40 [place]arro # (Auto) 1.02 H Eos # (Auto) 0.03 Baso # (Auto) 0.04 Immature Gran # (Auto) 0.09 SARS-CoV-2, RNA, NAAT Blood Type Antibody Screen
[2022-10-31] MEDS: IBUPROFEN 600 MG TAB PO PRN ×2 (18:25→22:10)
[2022-10-31] MEDS ORDERED: GENTAMICIN SULFATE 420 MG in DEXTROSE 5% 100 ML IV SCH (19:00)
[2022-10-31] MEDS ORDERED: bisacodyL 5 MG TABEC PO SCH (20:00)
[2022-11-01] MEDS: AMPICILLIN 2,000 MG in SODIUM CHLOR 0.9% AD-VAN 100 ML IV SCH ×3 (00:07→12:02)
[2022-11-01] MEDS: CLINDAMYCIN/D5W 900 MG/50 ML BAG IV SCH (06:13)
[2022-11-01] MEDS: IBUPROFEN 600 MG TAB PO PRN ×3 (06:49→21:15)
[2022-11-01] MEDS: PRENATAL VITAMIN 1 TAB PO SCH (08:00)
[2022-11-01] MEDS: FERROUS SULFATE 325 MG TAB PO SCH (08:00)
[2022-11-01] MEDS: SIMETHICONE 80 MG CHEW PO SCH ×4 (08:00→21:15)
[2022-11-01] MEDS: DOCUSATE SODIUM 100 MG CAP PO SCH ×2 (08:00→21:15)
[2022-11-01 08:10] LABS: Basophils # (auto) 0.03 K/uL (0-0.2); Basophils % (auto) 0.2 %; Eosinophils # (auto) 0.11 K/uL (0-0.50); Eosinophils % (auto) 0.7 %; Hematocrit (blood only) 31.3 % (37.0-47.0); Hemoglobin 10.7 g/dl (12.0-16.0); Immature Granulocytes # (auto) 0.11 K/uL (0.01-0.20); Immature Granulocytes % (auto) 0.7 %; Lymphocytes # (auto) 1.09 K/uL (1.2-3.4); Lymphocytes % (auto) 7.3 %; Mean Corpuscular Hemoglobin 31.3 pg (25.0-34.0); Mean Corpuscular Hgb Conc 34.2 g/dL (32.0-36.0); Mean Corpuscular Volume 91.5 fL (80.0-100.0); Mean Platelet Volume 10.7 fL (9.4-12.4); Monocytes # (auto) 0.94 K/uL (0.11-0.59); Monocytes % (auto) 6.3 %; Neutrophils # (auto) 12.72 K/uL (1.40-6.50); Neutrophils % (auto) 84.8 %; Platelet Count 150 K/uL (130-400); RDW Coefficient of Variation 13.8 % (11.5-14.5); RDW Standard Deviation 46.6 fL (36.4-46.3); Red Blood Count 3.42 M/uL (4.20-5.40)
[2022-11-01 08:22] LABS: Est GFR (African American) 142.2 ml/min; Est GFR (Non-African American) 122.7 ml/min
--- NOTE | 2022-11-01 10:47 | Obstetrical Progress Note ---
Date of Service November 01, 2022 Subjective Ambulation: ambulating normally Voiding: no voiding problems Passing Gas:: Yes Diet Tolerance:: regular diet Lochia:: Small Feeding Type:: breast feeding Current Pain Level(1-10): 0 doing well Physical Exam Constitutional WD/WN, vitals as above Gastrointestinal (Abdomen) Inspection/Auscultation: abdomen normal to inspection and + abdominal surgical incision Musculoskeletal Extremities: extremities normal to inspection Skin no rashes, warm and dry Neurologic patellar DTR's 2+ bilat, sensation intact Psychiatric A+Ox3, euthymic affect Results & Data Vital Signs (Past 12 Hours) Vital Signs Temp Pulse Resp BP Pulse Ox O2 Del Method 11/01/22 08:30 37.4 C 94 H 18 114/76 Room Air 11/01/22 00:21 36.5 C 85 18 96/59 L 96 Room Air Laboratory Results 10/29/22 10/29/22 10/30/22 08:58 Unknown 18:23 WBC 9.04 RBC 4.08 L Hgb 12.9 Hct 37.4 MCV 91.7 MCH 31.6 MCHC 34.5 RDW Std Deviation 44.9 RDW Coeff of Wilbur 13.3 Plt Count 152 MPV 10.8 Immature Gran % (Auto) Neut % (Auto) Lymph % (Auto) Thomas % (Auto) Eos % (Auto) Baso % (Auto) Neut # (Auto) Lymph # (Auto) Thomas # (Auto) Eos # (Auto) Baso # (Auto) Immature Gran # (Auto) Creatinine Est Cr Clr Drug Dosing Est GFR ( Amer) Est GFR (Non-Af Amer) SARS-CoV-2, RNA, NAAT NEGATIVE Blood Type A Positive Antibody Screen NEGATIVE 10/31/22 11/01/22 11/01/22 05:52 07:42 07:42 WBC 17.61 H 15.00 H RBC 3.61 L 3.42 L Hgb 11.5 L 10.7 L Hct 33.7 L 31.3 L MCV 93.4 91.5 MCH 31.9 31.3 MCHC 34.1 34.2 RDW Std Deviation 46.5 H 46.6 H RDW Coeff of Wilbur 13.7 13.8 Plt Count 126 L 150 MPV 10.9 10.7 Immature Gran % (Auto) 0.5 0.7 Neut % (Auto) 85.3 84.8 Lymph % (Auto) 8.0 7.3 Thomas % (Auto) 5.8 6.3 Eos % (Auto) 0.2 0.7 Baso % (Auto) 0.2 0.2 Neut # (Auto) 15.03 H 12.72 H Lymph # (Auto) 1.40 1.09 L Thomas # (Auto) 1.02 H 0.94 H Eos # (Auto) 0.03 0.11 Baso # (Auto) 0.04 0.03 Immature Gran # (Auto) 0.09 0.11 Creatinine 0.62 Est Cr Clr Drug Dosing 142.0 Est GFR ( Amer) 142.2 Est GFR (Non-Af Amer) 122.7 SARS-CoV-2, RNA, NAAT Blood Type Antibody Screen
[2022-11-01] MEDS ORDERED: bisacodyL 10 MG SUPP PR PRN (19:36)
[2022-11-01] MEDS ORDERED: AMOXICILLIN/CLAVULANATE 875 MG TAB PO SCH (21:00)
[2022-11-02] MEDS: IBUPROFEN 600 MG TAB PO PRN ×3 (02:09→12:56)
--- NOTE | 2022-11-02 07:29 | Obstetrical Progress Note ---
Date of Service November 02, 2022 Subjective Ambulation: ambulating normally Voiding: no voiding problems Passing Gas:: Yes Diet Tolerance:: regular diet Lochia:: Small Feeding Type:: breast feeding Current Pain Level(1-10): 0 doing well Physical Exam Constitutional WD/WN, vitals as above Gastrointestinal (Abdomen) Inspection/Auscultation: abdomen normal to inspection and + abdominal surgical incision Musculoskeletal Extremities: extremities normal to inspection Skin no rashes, warm and dry Neurologic patellar DTR's 2+ bilat, sensation intact Psychiatric A+Ox3, euthymic affect Genitourinary no vaginal lesions, no adnexal mass Results & Data Vital Signs (Past 12 Hours) Vital Signs Temp Pulse Resp BP Pulse Ox O2 Del Method 11/01/22 23:29 36.8 C 81 18 107/68 95 Room Air 11/01/22 19:40 36.7 C 88 20 127/79 97 Room Air Laboratory Results 10/29/22 10/29/22 10/30/22 08:58 Unknown 18:23 WBC 9.04 RBC 4.08 L Hgb 12.9 Hct 37.4 MCV 91.7 MCH 31.6 MCHC 34.5 RDW Std Deviation 44.9 RDW Coeff of Wilbur 13.3 Plt Count 152 MPV 10.8 Immature Gran % (Auto) Neut % (Auto) Lymph % (Auto) Iron % (Auto) Eos % (Auto) Baso % (Auto) Neut # (Auto) Lymph # (Auto) Iron # (Auto) Eos # (Auto) Baso # (Auto) Immature Gran # (Auto) Creatinine Est Cr Clr Drug Dosing Est GFR ( Amer) Est GFR (Non-Af Amer) SARS-CoV-2, RNA, NAAT NEGATIVE Blood Type A Positive Antibody Screen NEGATIVE 10/31/22 11/01/22 11/01/22 05:52 07:42 07:42 WBC 17.61 H 15.00 H RBC 3.61 L 3.42 L Hgb 11.5 L 10.7 L Hct 33.7 L 31.3 L MCV 93.4 91.5 MCH 31.9 31.3 MCHC 34.1 34.2 RDW Std Deviation 46.5 H 46.6 H RDW Coeff of Wilbur 13.7 13.8 Plt Count 126 L 150 MPV 10.9 10.7 Immature Gran % (Auto) 0.5 0.7 Neut % (Auto) 85.3 84.8 Lymph % (Auto) 8.0 7.3 Iron % (Auto) 5.8 6.3 Eos % (Auto) 0.2 0.7 Baso % (Auto) 0.2 0.2 Neut # (Auto) 15.03 H 12.72 H Lymph # (Auto) 1.40 1.09 L Iron # (Auto) 1.02 H 0.94 H Eos # (Auto) 0.03 0.11 Baso # (Auto) 0.04 0.03 Immature Gran # (Auto) 0.09 0.11 Creatinine 0.62 Est Cr Clr Drug Dosing 142.0 Est GFR ( Amer) 142.2 Est GFR (Non-Af Amer) 122.7 SARS-CoV-2, RNA, NAAT Blood Type Antibody Screen
[2022-11-02] MEDS ORDERED: AMOXICILLIN/CLAVULANATE 875 MG TAB PO SCH (08:00)
[2022-11-02] MEDS: SIMETHICONE 80 MG CHEW PO SCH ×2 (08:39→12:56)
[2022-11-02] MEDS: FERROUS SULFATE 325 MG TAB PO SCH (08:39)
[2022-11-02] MEDS: PRENATAL VITAMIN 1 TAB PO SCH (08:40)
[2022-11-02] MEDS: DOCUSATE SODIUM 100 MG CAP PO SCH (08:40)
--- NOTE | 2022-11-14 06:15 | Discharge Summary (DS) ---
DATE OF ADMISSION: 10/29/2022. DATE OF DISCHARGE: 11/02/2022. DETAILS OF ADMISSION: The patient is a 26-year-old G1, P0, at 41 weeks of gestation, who was schedul ed for induction of labor for postdates. She was admitted on 10/29/2022. Her cervix was unfavorable and the plan was to place a Cervidil for cervical ripening and then Cervidil caused painful regular contractions and cervix was still unchanged. She desired pain medications for pain and she was given 1 mg of Stadol and Cervidil was removed due to frequent contractions. Right after midnight, her cer vix changed to 2, 70, -2 with a bulging bag and as she was getting more painful, she wanted epidural for pain. After epidural was started, she was started on Pitocin for augmentation of her contraction s. Cervix changed to 3 cm, 90%, -1. She was still found to be fully dilated and desired to push. S he pushed for about 4 hours with no progress, arrest of descent in second stage of labor, and the bab y was direct occiput posterior and mom had intrapartum fever, suspecting intra-amniotic infection. A ntibiotics were started and she was consented for primary due to above findings. The patien t delivered a viable male infant at 1900. Apgars were 8/9 and weight was 3638 grams. Her surgery wa s uncomplicated. See dictated op note for details. On postop period, the patient was doing well, vi shirin signs stable, afebrile. Urine output was adequate. On postoperative day #1, the patient was doi ng well, vital signs stable, afebrile. The patient was ambulated, tolerated regular diet, breastfeed ing. Physical exam was unremarkable. Incision was clean, dry, and intact. Repeat H and H was 1133 . On postoperative day #2, the patient was doing well, vital signs stable, afebrile. She was breast feeding, ambulating. On postoperative day #3, the patient was doing well, vital signs stable, afebril e, . Physical exam was unremarkable. The incision was clean, dry, and intact. Her H a nd H was 10.7/31.3. Her elevated white count came down. She received both preop and postop antibiot ics and she was discharged home on 11/02/2022 with pain medications and oral antibiotics. She is to be seen in the office in a week. Job ID: [id number]
== END 2022-11-02 13:10 | disposition home or self-care (01) | DRG 786 ==
LOC: 4S1 07:44 → EDSEX 07:44 → 4E2 10-30 22:35